=== PATIENT | male | born 1980 | race American Indian/Alaskan Native ===

== ENCOUNTER 2020-09-30 15:09 | Emergency (ER) | payer SELFPAY ==
--- NOTE | 2020-09-30 18:48 | Event Note ---
ED Screening Note ED Screening Note: september 05 lower abd pain and flank pain bilaterally states he believes started as food poisoning no n/v states he has been taking probiotics he used a detox which he states did not improve his symptoms +diarrhea +no appetite worse with eating states also having dysuria and urinary frequency PMHx HIV, has not been taking his antivirals allergy: none This initial assessment/diagnostic orders/clinical plan/treatment(s) is/are subject to change based on patients health status, clinical progression and re- assessment by fellow clinical providers in the ED. Further treatment and workup at subsequent clinical providers discretion. Patient/guardian urged not to elope from the ED as their condition may be serious if not clinically assessed and managed. Initial orders include: labs, UA
[2020-09-30 19:15] LABS: Bilirubin,Urine NEG (Negative); Blood,Urine NEG (Negative); Color,Urine Yellow (Yellow); Mucus,Urine 1+ /HPF
[2020-09-30 19:54] LABS: Hematocrit 43.1 % (35.5-45.6); Hemoglobin 14.1 gm/dl (11.8-15.2); Mean Corpuscular HGB Conc 33 % (32-34); Mean Corpuscular Volume 82 fl (84-94); Platelet Count 326 K/mm3 (140-440); Red Blood Count 5.23 M/mm3 (3.65-5.03); Red Cell Distribution Width 14.2 % (13.2-15.2)
[2020-09-30 20:13] LABS: Alanine Aminotransferase 15 units/L (7-56); Albumin 4.5 g/dL (3.9-5); BUN/Creatinine Ratio 8; Blood Urea Nitrogen 9 mg/dL (9-20); Calcium 10.3 mg/dL (8.4-10.2); Hemolysis Index 7
[2020-09-30 21:19] LABS: Total Cells Counted 100
[2020-09-30 21:21] LABS: Ovalocytes Rare
[2020-09-30 21:22] LABS: Platelet Estimate Consistent w Auto
--- NOTE | 2020-09-30 21:44 | Emergency Department Report ---
ED General Adult HPI - General Chief complaint: Abdominal Pain Stated complaint: BILATERAL SIDE PAIN Time Seen by Provider: 09/30/20 18:41 Source: patient Mode of arrival: Ambulatory Limitations: No Limitations - History of Present Illness Initial comments: 40-year-old -Prydeinig male presents to the emergency room for left flank and left lower abdominal pain that started September 05. Patient states that the pain has been intermittent and would be severe at times. Patient states that he had started probiotics as well as took a colon cleanse which did not help. Patient reports he has a decrease in appetite decrease in fluid intake. Does have a past medical history of HIV has been off his Biktarvy for 3 weeks secondary to decreased appetite. Onset/Timin -: week(s) - Related Data Previous Rx's Medication Instructions Recorded Last Taken Type Doxycycline Hyclate [Doxycycline 100 mg PO Q12HR 10 Days #20 tab 09/30/20 Unknown Rx Hyclate TAB] HYDROcodone/APAP 7.5-325 [Neligh 1 each PO Q8HR PRN #12 tablet 09/30/20 Unknown Rx 7.5/325] Tamsulosin [Flomax] 0.4 mg PO QDAY 5 Days #5 cap 09/30/20 Unknown Rx Allergies Allergy/AdvReac Type Severity Reaction Status Date / Time No Known Allergies Allergy Unverified 09/30/20 16:56 ED Review of Systems ROS: Stated complaint: BILATERAL SIDE PAIN Other details as noted in HPI ED Past Medical Hx - Past Medical History Previous Medical History?: No - Surgical History Past Surgical History?: No - Medications Home Medications: Home Medications Medication Instructions Recorded Confirmed Last Taken Type Doxycycline Hyclate [Doxycycline 100 mg PO Q12HR 10 Days #20 tab 09/30/20 Unknown Rx Hyclate TAB] HYDROcodone/APAP 7.5-325 [Neligh 1 each PO Q8HR PRN #12 tablet 09/30/20 Unknown Rx 7.5/325] Tamsulosin [Flomax] 0.4 mg PO QDAY 5 Days #5 cap 09/30/20 Unknown Rx ED Physical Exam - General Limitations: No Limitations General appearance: alert, in no apparent distress - Head Head exam: Present: atraumatic, normocephalic - Eye Eye exam: Present: normal appearance - ENT ENT exam: Present: mucous membranes moist - Neck Neck exam: Present: normal inspection - Respiratory Respiratory exam: Present: normal lung sounds bilaterally. Absent: respiratory distress - Cardiovascular Cardiovascular Exam: Present: regular rate, normal rhythm. Absent: systolic murmur, diastolic murmur, rubs, gallop - GI/Abdominal GI/Abdominal exam: Present: soft, tenderness (llq), normal bowel sounds. Absent: distended - Rectal Rectal exam: Present: deferred - Extremities Exam Extremities exam: Present: normal inspection - Back Exam Back exam: Present: normal inspection, full ROM. Absent: tenderness, CVA tenderness (R), CVA tenderness (L) - Neurological Exam Neurological exam: Present: alert, oriented X3 - Psychiatric Psychiatric exam: Present: normal affect, normal mood - Skin Skin exam: Present: warm, dry, intact, normal color. Absent: rash ED Course Vital Signs 09/30/20 16:59 Temperature 98.5 F Pulse Rate 103 H Respiratory 18 Rate Blood Pressure 173/99 O2 Sat by Pulse 99 Oximetry ED Medical Decision Making - Lab Data Result diagrams: 09/30/20 19:04 09/30/20 19:04 Laboratory Tests 09/30/20 09/30/20 09/30/20 19:04 19:04 Unknown WBC 7.0 RBC 5.23 H Hgb 14.1 Hct 43.1 MCV 82 L MCH 27 L MCHC 33 RDW 14.2 Plt Count 326 Lymph % (Auto) A/C Tech Add Manual Diff Complete Total Counted 100 Seg Neutrophils % A/C Tech Seg Neuts % (Manual) 40.0 Lymphocytes % (Manual) 54.0 H Monocytes % (Manual) 6.0 Nucleated RBC % Not Reportable Seg Neutrophils # Man 2.8 Band Neutrophils # 0.0 Lymphocytes # (Manual) 3.8 Abs React Lymphs (Man) 0.0 Monocytes # (Manual) 0.4 Eosinophils # (Manual) 0.0 Basophils # (Manual) 0.0 Metamyelocytes # 0.0 Myelocytes # 0.0 Promyelocytes # 0.0 Blast Cells # 0.0 WBC Morphology Not Reportable Hypersegmented Neuts Not Reportable Hyposegmented Neuts Not Reportable Hypogranular Neuts Not Reportable Smudge Cells Not Reportable Toxic Granulation Not Reportable Toxic Vacuolation Not Reportable Dohle Bodies Not Reportable Pelger-Huet Anomaly Not Reportable Benson Rods Not Reportable Platelet Estimate Consistent w auto Clumped Platelets Not Reportable Plt Clumps, EDTA Not Reportable Large Platelets Not Reportable Giant Platelets Not Reportable Platelet Satelliting Not Reportable Plt Morphology Comment Not Reportable RBC Morphology Not Reportable Dimorphic RBCs Not Reportable Polychromasia Not Reportable Hypochromasia Not Reportable Poikilocytosis Not Reportable Anisocytosis Not Reportable Microcytosis Not Reportable Macrocytosis Not Reportable Spherocytes Not Reportable Pappenheimer Bodies Not Reportable Sickle Cells Not Reportable Target Cells Not Reportable Tear Drop Cells Not Reportable Ovalocytes Rare Helmet Cells Not Reportable Brice-Talmo Bodies Not Reportable [place] Rings Not Reportable [place] Cells Not Reportable Bite Cells Not Reportable Crenated Cell Not Reportable Elliptocytes Not Reportable Acanthocytes (Spur) Not Reportable Rouleaux Not Reportable Hemoglobin C Crystals Not Reportable Schistocytes Not Reportable Malaria parasites Not Reportable Puneet Bodies Not Reportable Hem Pathologist Commnt No Sodium 137 Potassium 4.0 Chloride 100.5 Carbon Dioxide 25 Anion Gap 16 BUN 9 Creatinine 1.1 Estimated GFR > 60 BUN/Creatinine Ratio 8 Glucose 85 Calcium 10.3 H Total Bilirubin 0.40 AST 16 ALT 15 Alkaline Phosphatase 102 Total Protein 8.8 H Albumin 4.5 Albumin/Globulin Ratio 1.0 Lipase 56 Urine Color Yellow Urine Turbidity Clear Urine pH 5.0 Ur Specific Harrison 1.015 Urine Protein 30 mg/dl Urine Glucose (UA) Neg Urine Ketones Neg Urine Blood Neg Urine Nitrite Neg Urine Bilirubin Neg Urine Urobilinogen 4.0 Ur Leukocyte Esterase Tr Urine WBC (Auto) 7.0 H Urine RBC (Auto) 41.0 U Epithel Cells (Auto) < 1.0 Urine Mucus 1+ - Radiology Data Radiology results: report reviewed [facility] [address] [place] [address] Cat Scan Report Signed Patient: GARY CASTANEDA JR MR#: [id number] : 1980 Acct:[id number] Age/Sex: 40 / M ADM Date: 09/30/20 Loc: ED Attending Dr: Ordering Physician: KELSY ORSAS Date of Service: 09/30/20 Procedure(s): CT abdomen pelvis w con Accession Number(s): [id number] cc: KELSY ROSAS CT ABDOMEN AND PELVIS WITH CONTRAST INDICATION / CLINICAL INFORMATION: L.L.Q. flank and abd pain. TECHNIQUE: Axial CT images were obtained through the abdomen and pelvis after IV contrast. All CT scans at this location are performed using CT dose reduction for ALARA by means of automated exposure control. COMPARISON: None available. FINDINGS: LOWER CHEST: No significant abnormality. LIVER: No significant abnormality. GALLBLADDER: No significant abnormality. BILE DUCTS: No significant abnormality. PANCREAS: No significant abnormality. SPLEEN: No significant abnormality. ADRENALS: No significant abnormality. RIGHT KIDNEY / URETER: Multiple small simple renal cysts are noted. No calcified stones or hydronephrosis. LEFT KIDNEY / URETER: Multiple small simple renal cysts are noted. Calcified stone of the left distal ureter/UVJ measures 7 mm. Mild left hydronephrosis. No pelvicalyceal stones are noted. STOMACH / SMALL BOWEL: No significant abnormality. No mechanical bowel obstruction. COLON: Abundant fecal material noted throughout the colon and rectal vault. APPENDIX: No significant abnormality. PERITONEUM: No free fluid. No free air. No fluid collection. LYMPH NODES: No significant adenopathy. AORTA / ARTERIES: No significant abnormality. IVC / VEINS: No significant abnormality. URINARY BLADDER: 7 mm calcified stone left posterior wall of the bladder at the UVJ. REPRODUCTIVE ORGANS: No significant abnormality. ADDITIONAL FINDINGS: None. SKELETAL SYSTEM: No significant abnormality. No aggressive osseous lesions. IMPRESSION: 1. 7 mm partially obstructive calcified stone at the left distal ureter/UVJ with associated mild left hydronephrosis. No left pelvicalyceal stones are noted. 2. No right-sided nephrolithiasis or hydronephrosis. Signer Name: Robert Mirza MD Signed: 09/30/2020 10:49 PM Workstation Name: [id number] Transcribed By: Dictated By: ROBERT MIRZA Electronically Authenticated By: ROBERT MIRZA Signed Date/Time: 09/30/202248 DD/ 42 - Medical Decision Making 40-year-old -Prydeinig male presents to the emergency room for left flank and left lower abdominal pain that started September 05. Patient states that the pain has been intermittent and would be severe at times. Patient states that he had started probiotics as well as took a colon cleanse which did not help. Patient reports he has a decrease in appetite decrease in fluid intake. Does have a past medical history of HIV has been off his Biktarvy for 3 weeks secondary to decreased appetite. CT with contrast rule out diverticulitis versus kidney stones. - Differential Diagnosis Diverticulitis, kidney stone, urinary tract infection Critical care attestation.: If time is entered above; I have spent that time in minutes in the direct care of this critically ill patient, excluding procedure time. ED Disposition Clinical Impression: Renal calculus, left Disposition: DC-01 TO HOME OR SELFCARE Is pt being admited?: No Does the pt Need Aspirin: No Condition: Stable Instructions: Kidney Stones, [id number] Additional Instructions: CAT scan shows that you have a 7 mm partially obstructing renal stone. Treatment is to increase fluid intake pain medication and to follow-up with urologist. I am also treating with doxycycline. Prescriptions: Doxycycline Hyclate [Doxycycline Hyclate TAB] 100 mg PO Q12HR 10 Days #20 tab Tamsulosin [Flomax] 0.4 mg PO QDAY 5 Days #5 cap HYDROcodone/APAP 7.5-325 [Neligh 7.5/325] 1 each PO Q8HR PRN #12 tablet PRN Reason: Pain Referrals: PRIMARY CAREMD [Primary Care Provider] - 3-5 Days KAMERON BIGGS MD [Staff Physician] - 3-5 Days Forms: Work/School Release Form(ED)
--- NOTE | 2020-09-30 22:54 | Cat Scan Report ---
CT ABDOMEN AND PELVIS WITH CONTRAST INDICATION / CLINICAL INFORMATION: L.L.Q. flank and abd pain. TECHNIQUE: Axial CT images were obtained through the abdomen and pelvis after IV contrast. All CT scans at this location are performed using CT dose reduction for ALARA by means of automated exposure control. COMPARISON: None available. FINDINGS: LOWER CHEST: No significant abnormality. LIVER: No significant abnormality. GALLBLADDER: No significant abnormality. BILE DUCTS: No significant abnormality. PANCREAS: No significant abnormality. SPLEEN: No significant abnormality. ADRENALS: No significant abnormality. RIGHT KIDNEY / URETER: Multiple small simple renal cysts are noted. No calcified stones or hydronephr osis. LEFT KIDNEY / URETER: Multiple small simple renal cysts are noted. Calcified stone of the left distal ureter/UVJ measures 7 mm. Mild left hydronephrosis. No pelvicalyceal stones are noted. STOMACH / SMALL BOWEL: No significant abnormality. No mechanical bowel obstruction. COLON: Abundant fecal material noted throughout the colon and rectal vault. APPENDIX: No significant abnormality. PERITONEUM: No free fluid. No free air. No fluid collection. LYMPH NODES: No significant adenopathy. AORTA / ARTERIES: No significant abnormality. IVC / VEINS: No significant abnormality. URINARY BLADDER: 7 mm calcified stone left posterior wall of the bladder at the UVJ. REPRODUCTIVE ORGANS: No significant abnormality. ADDITIONAL FINDINGS: None. SKELETAL SYSTEM: No significant abnormality. No aggressive osseous lesions. IMPRESSION: 1. 7 mm partially obstructive calcified stone at the left distal ureter/UVJ with associated mild left hydronephrosis. No left pelvicalyceal stones are noted. 2. No right-sided nephrolithiasis or hydronephrosis. Signer Name: Robert Loredo MD Signed: 09/30/2020 10:49 PM Workstation Name: [id number]
[2020-09-30 23:54] VITALS: BP 139/91
== END 2020-09-30 23:51 | disposition home or self-care (01) ==
LOC: ED 15:09
DX: N20.0 Calculus of kidney (principal); Z79.899 Other long term (current) drug therapy
CPT/HCPCS: 36415; 74177; 80053; 81001; 83690; 85007; 85025; 99284; Q9967